=== PATIENT | female | born 1975 | race Caucasian/White ===

== ENCOUNTER 2019-03-23 12:17 | Outpatient (CLI) | payer BC, SELFPAY ==
--- NOTE | 2019-03-23 12:28 | US_ITS ---
WS: [id number] ULTRASOUND-GUIDED LEFT BREAST BIOPSY CLINICAL INFORMATION: LT BREAST NODULE COMPARISON: None. FINDINGS: The procedure including risks, benefits, and complications were discussed with the patient who agreed to proceed. Using sterile technique patient was prepped and draped in the usual sterile fashion. Aft er 1% lidocaine using ultrasound guidance the cystic lesion at the 10:00 position left breast was asp irated. 1 to 2 cc of dark bloody fluid was aspirated. Cystic lesion essentially resolved and clip was placed at the aspiration site. Fluid was sent for cytology and culture. Next the 2:00 lesion was localized. After 1% lidocaine utilizing real-time ultrasound guidance 5 14-gauge cores were obtained of the left breast lesion at the 2 o'clock position. Subsequently a titanium clip was placed in the biopsy cavit y. No immediate complications. PATHOLOGY DEMONSTRATES: Breat 2:00 position needle core biopsy demonstrates benign breast tissue with fibrocystic changes. N o malignancy or atypia Breast 10:00 4cc yellow barros fluid from breast cyst. Benign cyst contents. No evidence of neoplasia. 1. Uncomplicated ultrasound-guided left breast biopsy 2:00 and aspiration 10:00. 2. The pathology demonstrates benign fibrocystic change at the 2:00 position. No malignancy 3. The pathology demonstrates benign cyst contents at 10:00. No neoplasia. US/[place] [id number] IMPRESSION: BI-RADS: 2-Benign FOLLOW UP: 6 Month Follow-up Recommend 6 month follow-up left breast diagnostic mammogram and ultrasound pos tbiopsy.
== END 2019-03-23 12:18 | disposition home or self-care (01) ==
LOC: RADSHAW 12:21
PROVIDERS: Family Provider Family Medicine; PCP Family Medicine; Visit Provider Family Medicine
DX: N63.21 Unspecified lump in the left breast, upper outer quadrant (principal)
CPT/HCPCS: 19000; 19083; 76942; 87070; 87075; 87205; 88112; 88305; J2001

== ENCOUNTER 2019-10-11 08:49 | Outpatient (CLI) | payer BC, SELFPAY ==
--- NOTE | 2019-10-11 08:54 | MM_ITS ---
WS: [id number] DIAGNOSTIC LEFT DIGITAL MAMMOGRAM WITH CAD HISTORY: LT BREAST NODULE, 6 month follow-up after breast biopsy. No malignancy noted on the biopsy. 2 areas were biopsied. COMPARISON: 02/10/2019, 01/20/2019, 03/23/2019. Technique: CC, MLO and ML views. Spot compression LEFT CC and MLO. Breast composition: There are scattered areas of fibroglandular density. There are biopsy clips in t he superior LEFT breast. No associated mass is are evident. The increased density described on 2018 posterior to the nipple is no longer present. Again noted is the very vague asymmetry in the pos terior LEFT breast near the chest wall. No interval change since 01/20/2019. This asymmetry is slightl y lobulated measuring 7 mm. Similar in appearance as to 02/10/2019. I do not believe this area was bi opsied. This is probably at the 2-3 o'clock axis of the LEFT breast and very posterior. LEFT breast ultrasound, limited. No residual mass noted in the LEFT breast at 10:00. There is a benign lymph node at 10:00, 1 cm from the nipple. No corresponding abnormality by ultrasound of the mammographic abnormality at 2-3 o'clock very posterior. No residual mass or increasing size of the masses in the LEFT breast at 2:00 and 10:00 which were rec ently biopsied. MM/[place] [id number] IMPRESSION: BI-RADS: 3-Probably Benign FOLLOW UP: 6 Month Follow-up Patient to return in January 2020 bilateral mammogram. At the time additional evaluation of the very vague asymmetry in the posterior LEFT breast at 2-3 o'cl ock should be further evaluated. Ultrasound may be necessary.
== END 2019-10-11 08:50 | disposition home or self-care (01) ==
LOC: RADSHAW 08:52
PROVIDERS: PCP Family Medicine; Visit Provider Family Medicine
DX: N63.22 Unspecified lump in the left breast, upper inner quadrant (principal)
CPT/HCPCS: 76642; 77065

== ENCOUNTER 2020-03-05 09:59 | Outpatient (CLI) | payer BC, SELFPAY ==
--- NOTE | 2020-03-05 10:05 | MM_ITS ---
WS: [id number] BILATERAL DIGITAL DIAGNOSTIC MAMMOGRAM MAMMOGRAPHY WITH CAD CLINICAL INFORMATION: LT BREAST ASYMMETRY COMPARISON: October 11, 2019 TECHNIQUE: Bilateral CC, MLO, and ML views. FINDINGS: Scattered fibroglandular densities bilaterally. Biopsy clips in the superior left breast. Again seen is the vague asymmetry in the posterior left breast near the chest wall. This is unchanged since 2019 . Again this measures approximately 7 mm and best seen on the ML and MLO views. Left breast is otherw ise unchanged. Ultrasound is pending. Right breast is unchanged and unremarkable. ULTRASOUND BREAST LEFT TECHNIQUE: Ultrasound left breast focused area of concern. CLINICAL INFORMATION: LT BREAST ASYMMETRY COMPARISON: October 11, 2019 FINDINGS: Ultrasound left breast. Biopsy clips are seen at the 2:00 and 10:00 positions associated with the pre viously described lesions with previous benign biopsy. This is similar in appearance compared to prev ious. At the 3:00 position, near the areola, is a benign cystic appearing lesion or dilated duct with focal calcification which has a benign appearance. No suspicious lesions corresponding to the vague asymmetry described above. No pathologic abnormaliti es to target for biopsy. MM/[place] [id number] IMPRESSION: BI-RADS: 2-Benign FOLLOW UP: 1 Year Follow-up Recommend return to annual screening mammography.
== END 2020-03-05 10:00 | disposition home or self-care (01) ==
LOC: RADSHAW 10:03
PROVIDERS: PCP Family Medicine; Visit Provider Family Medicine
DX: N64.89 Other specified disorders of breast (principal)
CPT/HCPCS: 76642; 77066

== ENCOUNTER 2021-06-03 11:35 | Outpatient (CLI) | payer BC, SELFPAY ==
--- NOTE | 2021-06-03 11:50 | CT_ITS ---
WS: [id number] CT ABDOMEN TECHNIQUE: Noncontrast CT of the abdomen with coronal and sagittal reformatted images. CLINICAL INFORMATION: RLQ PAIN COMPARISON: CT DLP: 1305.[address] scans at [facility] use at least one of these dose optimization techniques: automated e xposure control; mA and/or kV adjustment per patient size (includes targeted exams where dose is matc hed to clinical indication); or iterative reconstruction. FINDINGS: Normal appendix in the RIGHT lower quadrant. No evidence of acute appendicitis. No obstruct ing renal or ureteral calculi. No hydronephrosis. LEFT lower pole renal cyst. Pelvic phleboliths. Noncontrast liver is normal. Noncontrast gallbladder is normal. Normal noncontrast spleen. Normal GE junction. Noncontrast pancreas is normal.Lung bases are well aerated. A few prominent lymph nodes carl ng the central mesentery and RIGHT lower quadrant unchanged since 2012 Normal sigmoid colon. Tiny fat-containing umbilical hernia. Mild compression superior endplate L3 has a chronic appearance unchanged since 2012 Prior hysterectomy. No free fluid in the abdomen or pelvis. Small fat-containing umbilical hernia. CT/CT abdomen wo con [id number] IMPRESSION: 1. Normal appendix in the RIGHT lower quadrant. No evidence of acute appendici tis. 2. Prior hysterectomy. 3. No obstructing renal or ureteral calculi. No hydronephrosis. 4. Tiny fat-containing umbilical hernia. 5. Mild chronic compression superior endplate L3 with slight anterolisthesis. Slight retropulsion of the posterior superior endplate L3 is unchanged. 6. No acute abdominal or pelvic findings
== END 2021-06-03 11:36 | disposition home or self-care (01) ==
LOC: RAD 11:38
PROVIDERS: PCP Family Medicine; Visit Provider Family Medicine
DX: Z90.710 Acquired absence of both cervix and uterus (principal); K42.9 Umbilical hernia without obstruction or gangrene
CPT/HCPCS: 74150

== ENCOUNTER 2021-06-04 15:05 | Emergency (ER) | payer BC, SELFPAY ==
[2021-06-04 15:15] VITALS: BP 154/74; PULSE 96; RESP 14; TEMP 37; O2SAT 99; BMI 36.5
[2021-06-04 15:22] VITALS: BP 157/80; PULSE 92; RESP 16; TEMP 36.6; O2SAT 97
--- NOTE | 2021-06-04 15:39 | ED_ITS ---
HPI - Abdominal Pain General: Chief Complaint: Abdominal Pain Stated Complaint: Carolyn Hays, lower right abd pain Time Seen by Provider: 06/04/21 15:27 Source: patient Mode of arrival: ambulatory Limitations: no limitations History of Present Illness: 45-year-old female presents emergency room complai barb of right flank pain. She has had this for the last several days. She been to urgent care twice she also had some diarrhea with it no hematochezia melena hematemesis cognitive status dysuria urgency or frequency. No recent oral antibiotics. MD elicited complaint: abdominal pain Onset (ago): day(s) Pain Consistency: constant Location: RUQ and R flank Severity: moderate Quality: cramping Radiation: none Migration to: no migration Exacerbating factors: nothing Relieving factors: nothing Associated Symptoms: Reports change in stool character, GI cramping and diarrhea; Denies anorexia, belching, bloating, change in bowel habits, chills, coffee ground emesis, constipation, dyspepsia, dysuria, excessive flatus, fever(s), heartburn, hematochezia, hematuria, hematemesis, fecal incontinence, loose stools, melena, nausea, poor appetite, syncope and vomiting Review of Systems Const: Denies: fever(s) or chills Card: Denies: syncope GI: Reports: diarrhea, GI cramping and change in stool character; Denies: nausea, vomiting, hematemesis, coffee ground emesis, heartburn, constipation, bloating, belching, excessive flatus, fecal incontinence, change i n bowel habits, hematochezia or melena : Denies: dysuria or hematuria PFSH ED PFSH: Medical History Chronic idiopathic urticaria Surgical History History of esophagogastroduodenoscopy 2020 History of hysterectomy Family History Other CAD (coronary artery disease) Cancer Diabetes Hypertension Social History Smoking and tobacco status: current some day smoker Physical Exam Const: COMMON NORMALS: no acute distress GENERAL APPEARANCE: cooperative and comfortable ORIENTATION/CONSCIOUSNESS: Yes awake, Yes oriented to person, Yes oriented to place and Yes oriented to time HENMT: COMMON NORMALS: normocephalic, atraumatic and hearing grossly normal bilaterally HEAD & SCALP: normocephalic and atraumatic Neck/C-Spine: COMMON NORMALS: no JVD Resp: COMMON NORMALS: normal respiratory effort, No retractions, No use of ac cessory muscles and clear to auscultation bilaterally AUSCULTATION: clear to auscultation bilaterally Cardio: COMMON NORMALS: no JVD, regular rate, regular rhythm and No murmurs present (Cardio) RATE: regular rate RHYTHM: regular rhythm GI: COMMON NORMALS: No hepatosplenomegaly present AUSCULTATION: Yes normoactive bowel sounds PALPATION: Yes Tenderness to palpation present (GI), No Guarding due to palpation present (GI) and Yes No hepatosplenomegaly present Extremity: COMMON NORMALS: normal to inspection, capillary refill normal, no clubbing, cyanosis or edema, no calf tenderness and no pedal edema Neuro: SENSORIUM/ORIENTATION: Yes oriented to person, Yes oriented to place and Yes oriented to time Skin: COMMON NORMALS: no rashes or lesions noted GENERAL SKIN EXAM: no rashes or lesions noted Course Vital Signs: Vital signs: Vital Signs Temperature 98 F 06/04/21 15:22 Pulse Rate 96 06/04/21 15:52 Respiratory Rate 16 06/04/21 15:52 Blood Pressure 168/89 06/04/21 15:52 Pulse Oximetry 99 06/04/21 15:52 MDM - Abdominal Pain Medical Decision Making Labs and imaging reviewed. CT does not show any acute pathology. She has a sma ll umbilical hernia but is not regularly tenderness not the area of her pain at this time. Recommend clear liquid diet if has any worsening or change in recheck follow-up with primary care if persists may need endoscopy. No episodes of diarrhea while in the emergency room. Medical Records I reviewed the patient's medical records. Lab Data I reviewed the patient's lab results. : 06/04/21 15:45 06/04/21 15:45 Labs/Radiology: Radiology Impressions Chest X-Ray 06/04/21 15:41 IMPRESSION: No acute findings. Abdomen/Pelvis CT 06/04/21 15:43 IMPRESSION: No acute intra-abdominal or intrapelvic pathology. COMMENTS: Consistent with the [employer]'s Incidental Findings Committee white paper (J Am Honorio Radiol 2018): Any incidental renal lesion less than 1 cm or classified as too small to characterize, or any incidental cystic renal lesion characterized as simple-appearing, is likely benign. No follow-up imaging is recommended for these lesions per consensus recommendations based on imaging criteria. Laboratory Results WBC 15.0 10^3/uL (4.0-10.0) H 06/04/21 15:45 RBC 4.81 10^6/uL (4.1-5.3) 06/04/21 15:45 Hgb 15.2 g/dL (11.5-15.3) 06/04/21 15:45 Hct 45.3 % (37.0-47.0) 06/04/21 15:45 MCV 94.2 fl (81-99) 06/04/21 15:45 MCH 31.6 pg (28.0-34.0) 06/04/21 15:45 MCHC 33.6 g/dL (30.0-36.0) 06/04/21 15:45 RDW 12.6 % (12.1-15.1) 06/04/21 15:45 Plt Count 334 10^3/cmm (130-400) 06/04/21 15:45 MPV 10.9 fL (7.4-10.4) H 06/04/21 15:45 Neut % (Auto) 67.0 % 06/04/21 15:45 Lymph % (Auto) 27.2 % 06/04/21 15:45 Wilkes % (Auto) 5.3 % 06/04/21 15:45 Eos % (Auto) 0.0 % 06/04/21 15:45 Baso % (Auto) 0.2 % 06/04/21 15:45 Neut # (Auto) 10.05 10^3/uL (1.8-7.7) H 06/04/21 15:45 Lymph # (Auto) 4.1 10^3/uL (0.8-4.8) 06/04/21 15:45 Wilkes # (Auto) 0.8 10^3/uL (0.2-0.9) 06/04/21 15:45 Eos # (Auto) 0.0 10^3/uL (0.0-0.8) 06/04/21 15:45 Baso # (Auto) 0.0 10^3/uL (0.0-0.1) 06/04/21 15:45 Nucleated RBC % (auto) 0 % 06/04/21 15:45 Nucleated RBCs # 0.0 /100WBC 06/04/21 15:45 Sodium 139 mmol/L (136-145) 06/04/21 15:45 Potassium 3.7 mmol/L (3.5-5.1) 06/04/21 15:45 Chloride 103 mmol/L (98-107) 06/04/21 15:45 Carbon Dioxide 26 mmol/L (22-29) 06/04/21 15:45 Anion Gap 13.7 (5-19) 06/04/21 15:45 BUN 10 mg/dL (6-20) 06/04/21 15:45 Creatinine 0.8 mg/dL (0.5-0.9) 06/04/21 15:45 GFR Calculation 77.6 mL/min (90-130) L 06/04/21 15:45 Glucose 83 mg/dL (65-115) 06/04/21 15:45 Calculated Osmolality 286 mOsm/kg (285-295) 06/04/21 15:45 Calcium 9.7 mg/dL (8.5-10.5) 06/04/21 15:45 Total Bilirubin 0.2 mg/dL (0.15-1.2) 06/04/21 15:45 AST 37 U/L (0-32) H 06/04/21 15:45 ALT 43 U/L (0-33) H 06/04/21 15:45 Alkaline Phosphatase 84 IU/L (35-105) 06/04/21 15:45 Total Protein 7.3 g/dL (6.6-8.7) 06/04/21 15:45 Albumin 4.5 g/dL (3.5-5.2) 06/04/21 15:45 Globulin 2.8 g/dL (1.3-4.6) 06/04/21 15:45 Lipase 12 U/L (13-60) L 06/04/21 15:45 Urine Color Yellow (Yellow) 06/04/21 16:25 Urine Appearance Sl hazy (CLEAR) 06/04/21 16:25 Urine pH 9 (5-7) H 06/04/21 16:25 Ur Specific [place] 1.015 (1.005-1.030) 06/04/21 16:25 Urine Protein Neg (Negative) 06/04/21 16:25 Urine Glucose (UA) Norm (Normal) 06/04/21 16:25 Urine Ketones Negative (Negative) 06/04/21 16:25 Urine Blood Neg (Negative) 06/04/21 16:25 Urine Nitrate Negative (Negative) 06/04/21 16:25 Urine Bilirubin Neg (Negative) 06/04/21 16:25 Prot Sulfosalicylic Acd Negative (Negative) 06/04/21 16:25 Urine Urobilinogen Norm mg/dL (Negative) 06/04/21 16:25 Ur Leukocyte Esterase Negative (Negative) 06/04/21 16:25 Urine RBC Rare /hpf (0-2) 06/04/21 16:25 Urine WBC None /hpf (0-5) 06/04/21 16:25 Ur Squamous Epith Cells 0-4 /hpf (0-5) H 06/04/21 16:25 Amorphous Sediment 1+ /hpf 06/04/21 16:25 Urine Bacteria Trace /hpf (NONE) 06/04/21 16:25 Discharge Plan Discharge Patient Disposition: Home Clinical Impression: Right flank pain Condition: Stable Prescriptions: New diclofenac sodium 75 mg tablet,delayed release (DR/EC) 75 mg PO Q12H PRN (Reason: pain) Qty: 20 0RF No Action fluticasone propionate [Flonase Allergy Relief] 50 mcg/actuation spray,miguel pension 1 spray intranasal DAILY 0RF Rx Instructions: administer into each nostril fexofenadine [Melodie Allergy] 180 mg tablet 180 mg PO DAILY 0RF irbesartan 150 mg tablet 150 mg PO DAILY 0RF montelukast 10 mg tablet 10 mg PO DAILY 0RF albuterol sulfate 2.5 mg /3 mL (0.083 %) solution for nebulization 2.5 mg inhalation Q4H PRN0RF epinephrine 0.3 mg/0.3 mL auto-injector 0.3 mg IM Q4H PRN0RF (DME) oxygen-air delivery systems Device See Rx Instructions .Route 0RF Rx Instructions: As directed Xolair 150 mg recon soln SUBCUT 0RF doxepin 50 mg capsule 50 mg PO DAILY 0RF Spiriva Respimat 1.25 mcg/actuation mist 2 puff inhalation DAILY 0RF Breo Ellipta 200-25 mcg/dose blister with device 1 inh inhalation DAILY 0RF Zyrtec 10 mg capsule 10 mg PO DAILY PRN0RF albuterol sulfate [ProAir HFA] 90 mcg/actuation HFA aerosol inhaler 1 inh inhalation QID 0RF Discharge Orders: Discharge ED (Routine); Ordered 06/04/21 Ordered By: Michael Arroyo Referrals: Karl Stevens MD [Primary Care Provider] - Patient Instructions: Opioid Safety Activity Restrictions/Additional Instructions: If symptoms persist follow-up with your primary care physician Coding Level of Care Code ED [employer] Resource Economist for Charo Santos
--- NOTE | 2021-06-04 15:40 | ECG_ITS ---
[facility] Test Date: 2021-06-04 Pat Name: Klarissa Marley Department: Room: Gender: Female [employer]: : 1975 Requested By: Michael Rios Order Number: [id number] Arun MD: Lorena Jeffery M.D. Measurements Intervals [place] Rate: 82 P: 64 MO: 155 QRS: 73 QRSD: 92 T: 58 QT: 366 QTc: 428 Interpretive Statements SINUS RHYTHM Compared to ECG 11/15/2018 22:54:02 No significant changes Electronically Signed On 06-04-2021 19:24:26 CDT by Lorena Jeffery M.D. [id number]
--- NOTE | 2021-06-04 15:41 | XRR_ITS ---
PROCEDURE INFORMATION: Exam: XR Chest Exam date and time: 06/04/2021 2:51 PM Age: 45 years old Clinical indication: Cough and dyspnea; Additional info: Dyspnea/cough TECHNIQUE: Imaging protocol: XR of the chest. Views: 1 view. COMPARISON: DX Chest 1 [place] [id number] 11/15/2018 8:35 PM FINDINGS: Lungs: Unremarkable. No consolidation. Pleural spaces: Unremarkable. No pleural effusion. No pneumothorax. Heart/Mediastinum: Unremarkable. No cardiomegaly. Bones/joints: Unremarkable. XR/XR chest 1V portable [id number] IMPRESSION: No acute findings.
--- NOTE | 2021-06-04 15:43 | CTR_ITS ---
PROCEDURE INFORMATION: Exam: CT Abdomen And Pelvis With Contrast Exam date and time: 06/04/2021 4:29 PM Age: 45 years old Clinical indication: Abdominal pain; Patient HX: [place] fever and rlq pain; Additional info: Abd pain TECHNIQUE: Imaging protocol: Computed tomography of the abdomen and pelvis with contrast. Contrast material: OMNI; Contrast volume: 300 ml; Contrast route: INTRAVENOUS (IV); COMPARISON: CT abdomen wo con [id number] 06/03/2021 12:03 PM RADIATION DOSE METRICS: Total DLP (mGy-cm): 1800.45 FINDINGS: Liver: Normal. No mass. Gallbladder and bile ducts: Normal. No calcified stones. No ductal dilation. Pancreas: Normal. No ductal dilation. Spleen: A small accessory splenule is noted in the left upper quadrant. The spleen is unremarkable. Adrenal glands: Normal. No mass. Kidneys and ureters: There is a 2.1 cm cyst in the left lower kidney. The kidneys are otherwise unremarkable. Stomach and bowel: There is diverticulosis without evidence of diverticulitis. Appendix: No evidence of appendicitis. Intraperitoneal space: Unremarkable. No free air. No significant fluid collection. Vasculature: Unremarkable. No abdominal aortic aneurysm. Lymph nodes: Unremarkable. No enlarged lymph nodes. Urinary bladder: Unremarkable as visualized. Reproductive: The uterus is surgically absent. Bones/joints: Unchanged grade 1 retrolisthesis and chronic mild anterior wedge compression fracture deformity of L3. Soft tissues: A small fat containing umbilical hernia is present. CT/CT abdomen pelvis w con* [id number] IMPRESSION: No acute intra-abdominal or intrapelvic pathology. COMMENTS: Consistent with the [employer]'s Incidental Findings Committee white paper (J Am Honorio Radiol 2018): Any incidental renal lesion less than 1 cm or classified as too small to characterize, or any incidental cystic renal lesion characterized as simple-appearing, is likely benign. No follow-up imaging is recommended for these lesions per consensus recommendations based on imaging criteria.
[2021-06-04 15:52] VITALS: BP 168/89; PULSE 96; RESP 16; O2SAT 99
[2021-06-04 16:22] LABS: Basophils % 0.2 %; Hematocrit 45.3 % (37.0-47.0); Hemoglobin 15.2 g/dL (11.5-15.3); Lymphocytes # 4.1 10^3/uL (0.8-4.8); Lymphocytes % 27.2 %; Mean Corpuscular HGB Conc 33.6 g/dL (30.0-36.0); Mean Corpuscular Hemoglobin 31.6 pg (28.0-34.0); Mean Corpuscular Volume 94.2 fl (81-99); Mean Platelet Volume 10.9 fL (7.4-10.4); Monocytes # 0.8 10^3/uL (0.2-0.9); Monocytes % 5.3 %; Neutrophils # 10.05 10^3/uL (1.8-7.7); Nucleated Red Blood Cells % 0 %; Platelet Count 334 10^3/cmm (130-400); Red Blood Count 4.81 10^6/uL (4.1-5.3); Red Cell Distribution Width 12.6 % (12.1-15.1)
[2021-06-04] MEDS: iohexol 300 mg/mL 100 mL Btl IV (16:28)
[2021-06-04 16:48] LABS: Alanine Aminotransferase 43 U/L (0-33); Albumin Level 4.5 g/dL (3.5-5.2); Alkaline Phosphatase 84 IU/L (35-105); Anion Gap 13.7 (5-19); Aspartate Amino Transferase 37 U/L (0-32); Blood Urea Nitrogen 10 mg/dL (6-20); Calcium 9.7 mg/dL (8.5-10.5); Carbon Dioxide 26 mmol/L (22-29); Chloride 103 mmol/L (98-107); Globulin 2.8 g/dL (1.3-4.6); Glomerular Filtration Rate 77.6 mL/min (90-130); Glucose 83 mg/dL (65-115); Lipase 12 U/L (13-60); Osmolality Calculated 286 mOsm/kg (285-295); Potassium 3.7 mmol/L (3.5-5.1); Sodium 139 mmol/L (136-145); Total Bilirubin 0.2 mg/dL (0.15-1.2); Total Protein 7.3 g/dL (6.6-8.7)
[2021-06-04 17:03] LABS: Bilirubin Urine Neg (Negative); Blood Urine Neg (Negative); Glucose Urine UA Norm (Normal); Ketones Urine Negative (Negative); Leukocyte Esterase Urine Negative (Negative); Nitrate Urine Negative (Negative); Protein Urine Neg (Negative); Specific Gravity, Urine 1.015 (1.005-1.030); Sulfosalicylic Acid Urine Negative (Negative); Urine Color Yellow (Yellow); Urobilinogen Urine Norm (Negative); pH Urine 9 (5-7)
[2021-06-04 17:04] LABS: Add Urine Culture? No; Add Urine Microscopic? YES; Amorphous Sediment Urine 1+ /hpf; Bacteria Urine TRACE /hpf; RBC Urine RARE /hpf (0-2); Squamous Epithelial Cell Urine 0-4 /hpf (0-5); Urine Appearance SL Hazy (CLEAR)
== END 2021-06-04 17:25 | disposition home or self-care (01) ==
PROVIDERS: Emergency Provider Family Medicine; PCP Family Medicine
DX: R10.31 Right lower quadrant pain (principal); F17.200 Nicotine dependence, unspecified, uncomplicated
CPT/HCPCS: 71045; 74177; 80053; 81001; 83690; 85025; 93005; 99283; Q9967

== ENCOUNTER 2021-06-27 09:06 | Day surgery (SDC) | payer BC, SELFPAY ==
[2021-06-27 06:21] VITALS: BMI 36.5
[2021-06-27 09:24] VITALS: BP 142/68; PULSE 76; RESP 16; TEMP 36.1; O2SAT 98
[2021-06-27] MEDS: sodium chloride 0.9% 1,000 ML 30 ML IV (09:26)
--- NOTE | 2021-06-27 09:41 | ANES.PREANE2 ---
Pre-Anesthetic Assessment Height/Weight: Height 1.73 m Weight 108.862 kg Temp Pulse Resp BP Pulse Ox 97.0 F L 76 16 142/68 98 06/27/21 09:24 06/27/21 09:24 06/27/21 09:24 06/27/21 09:24 06/27/21 09:24 Preop Diagnosis: diagnostic Operation Date: 06/27/21 10:30 Proposed Procedures p Colonoscopy 07019/bd pain R10.9(Not Applicable) - Obinna Booth MD Familial anesthetic complications: None Was Beta Hermila taken within 24 hours: N/A Was Clonidine taken within 24 hours: N/A Last intake: Intake Last Liquid Date 06/26/21 Last Liquid Time 20:00 Last Solid Date 06/25/21 Last Solid Time 19:30 Social No alcohol and No tobacco Exam alert, oriented x 3, clear to auscultation bilaterally and regular rate & rhythm Airway Submandibular: within normal limits Cervical ROM: within normal limits Mallampati: Class II Dentition: false Pulmonary Asthma and Sleep Apnea CV/HEM Hypertension GI Gastroesophageal Reflux Disease Metabolic Morbid Obesity Anesthetic Plan ASA status: 3 Anesthesia: MAC Medications/Allergies Home Medications Medication Instructions Recorded Confirmed Last Taken Type diclofenac sodium 75 mg 75 mg PO Q12H PRN #20 tab 06/04/21 06/27/21 06/26/21 Rx tablet,delayed release albuterol sulfate 90 mcg/actuation 1 inh INHALATION QID 06/13/21 06/27/21 06/23/21 History aerosol inhaler (ProAir HFA) cetirizine 10 mg capsule (Zyrtec) 10 mg PO DAILY PRN 06/13/21 06/27/21 06/27/21 History epinephrine 0.3 mg/0.3 mL 0.3 mg IM Q4H PRN 06/13/21 06/27/21 Unknown History injection, auto-injector fexofenadine 180 mg tablet 180 mg PO DAILY 06/13/21 06/27/21 06/27/21 History (Melodie Allergy) fluticasone propionate 50 1 spray INTRANASAL DAILY 06/13/21 06/27/21 06/27/21 History mcg/actuation nasal spray,suspension (Flonase Allergy Relief) irbesartan 150 mg tablet 150 mg PO DAILY 06/13/21 06/27/21 06/26/21 History montelukast 10 mg tablet 10 mg PO DAILY 06/13/21 06/27/21 Unknown History oxygen-air delivery systems 06/13/21 06/27/21 Unknown History tiotropium bromide 1.25 2 puff INHALATION DAILY 06/13/21 06/27/21 Unknown History mcg/actuation mist for inhalation (Spiriva Respimat) fluticasone propionate 220 2 inh INHALATION BID 06/27/21 06/27/21 06/27/21 History mcg/actuation HFA aerosol inhaler (Flovent HFA) ondansetron HCl 8 mg tablet 8 mg PO Q8H PRN 06/27/21 06/27/21 Unknown History Allergies Allergy/AdvReac Type Severity Reaction Status Date / Time aspirin Allergy ADR-Heartbu Verified 06/27/21 09:16 rn azithromycin [From Zithromax] Allergy ALGY-Hives Verified 06/27/21 09:16 alpha-gal Allergy Unknown Uncoded 06/27/21 09:16 bandaids Allergy ALGY-Rash Uncoded 06/27/21 09:16 Current Medications Generic Name Dose Route Start Last Admin Trade Name Freq PRN Reason Stop Dose Admin Sodium Chloride 1,000 mls @ 30 mls/hr 06/27/21 09:30 06/27/21 09:26 Sodium Chloride 0.9% IV 06/28/21 09:29 30 mls/hr .Q24H MAMIE Administration PFSH Anesthesia Medical History Chronic idiopathic urticaria Surgical History History of esophagogastroduodenoscopy 2020 History of hysterectomy Family History Other CAD (coronary artery disease) Cancer Diabetes Hypertension Social History Smoking and tobacco status: current some day smoker Data Anesthesia Cardiac Studies: Holter Monitor 01/18/20
--- NOTE | 2021-06-27 11:10 | W.PM.OPSFHP ---
Same Day Surgery H&P Indication for Procedure/HPI DATE OF PROCEDURE: June 27, 2021 CHIEF COMPLAINT/INDICATIONFOR SURGICAL PROCEDURE: Colonoscopy PREOP DIAGNOSIS: diagnostic PLANNED PROCEDURE: Operation Date: 06/27/21 10:30 Proposed Procedures p Colonoscopy 15392/bd pain R10.9(Not Applicable) - Obinna Booth MD Medications/Allergies* Home Medications Medication Instructions Recorded Confirmed Type albuterol sulfate 90 mcg/actuation 1 inh INHALATION QID 06/13/21 06/27/21 History aerosol inhaler (ProAir HFA) cetirizine 10 mg capsule (Zyrtec) 10 mg PO DAILY PRN 06/13/21 06/27/21 History epinephrine 0.3 mg/0.3 mL 0.3 mg IM Q4H PRN 06/13/21 06/27/21 History injection, auto-injector fexofenadine 180 mg tablet 180 mg PO DAILY 06/13/21 06/27/21 History (Melodie Allergy) fluticasone propionate 50 1 spray INTRANASAL DAILY 06/13/21 06/27/21 History mcg/actuation nasal spray,suspension (Flonase Allergy Relief) irbesartan 150 mg tablet 150 mg PO DAILY 06/13/21 06/27/21 History montelukast 10 mg tablet 10 mg PO DAILY 06/13/21 06/27/21 History oxygen-air delivery systems 06/13/21 06/27/21 History tiotropium bromide 1.25 2 puff INHALATION DAILY 06/13/21 06/27/21 History mcg/actuation mist for inhalation (Spiriva Respimat) fluticasone propionate 220 2 inh INHALATION BID 06/27/21 06/27/21 History mcg/actuation HFA aerosol inhaler (Flovent HFA) ondansetron HCl 8 mg tablet 8 mg PO Q8H PRN 06/27/21 06/27/21 History Allergies/Adverse Reactions Allergy/AdvReac Type Severity Reaction Status Date / Time aspirin Allergy ADR-Heartbu Verified 06/27/21 09:16 rn azithromycin [From Zithromax] Allergy ALGY-Hives Verified 06/27/21 09:16 alpha-gal Allergy Unknown Uncoded 06/27/21 09:16 bandaids Allergy ALGY-Rash Uncoded 06/27/21 09:16 Current Medications: Generic Name Dose Route Start Last Admin Trade Name Freq PRN Reason Stop Dose Admin Sodium Chloride 1,000 mls @ 30 mls/hr 06/27/21 09:30 06/27/21 09:26 Sodium Chloride 0.9% IV 06/28/21 09:29 30 mls/hr .Q24H MAMIE Administration Pertinent History/Comorbid Conditions* Medical History (Updated 06/13/21 @ 10:13 by Obinna Booth MD) Chronic idiopathic urticaria Surgical History (Updated 06/13/21 @ 10:13 by Obinna Booth MD) History of esophagogastroduodenoscopy 2020 History of hysterectomy Family History (Updated 06/13/21 @ 09:46 by Maria Elena Bethea MA) Diabetes CAD (coronary artery disease) Cancer Hypertension Social History Smoking and tobacco status: current some day smoker Pertinent Exam Findings alert, oriented x 3 and regular rate & rhythm Recommendations Surgery/Procedure today Coding Level of Care Code Acute Machinist Instructor for Charo Santos
[2021-06-27 11:30] VITALS: BP 120/70; PULSE 71; RESP 16; TEMP 36.3; O2SAT 98
--- NOTE | 2021-06-27 11:34 | ANE.PACU2 ---
Inpatient post-anesthesia follow up: Airway intact: Yes Vital signs: Temperature 97.0 F Pulse Rate 76 Respiratory Rate 16 Blood Pressure 142/68 Pulse Oximetry 98 Oxygen Delivery Me thod Room Air Oxygen Flow Rate Fraction of Inspir ed Oxygen Hydration adequate: Yes Nausea and vomiting: No Pain level: 1 Mental status: Baseline
[2021-06-27 11:45] VITALS: BP 140/88; PULSE 86; RESP 16; O2SAT 98
[2021-06-27 11:55] VITALS: BP 126/92; PULSE 74; RESP 16; O2SAT 98
== END 2021-06-27 12:10 | disposition home or self-care (01) ==
PROVIDERS: PCP Family Medicine; Visit Provider Surgery
PROC: 0DJD8ZZ Inspection of Lower Intestinal Tract, Via Natural or Artificial Opening Endoscopic (ICD-10-PCS; CPT 45378; principal; 2021-06-27 10:30)
DX: R10.9 Unspecified abdominal pain (principal); K63.3 Ulcer of intestine; L53.9 Erythematous condition, unspecified; K57.30 Diverticulosis of large intestine without perforation or abscess without bleeding; G47.30 Sleep apnea, unspecified; K21.9 Gastro-esophageal reflux disease without esophagitis; E66.01 Morbid (severe) obesity due to excess calories; Z68.36 Body mass index [BMI] 36.0-36.9, adult; F17.210 Nicotine dependence, cigarettes, uncomplicated
CPT/HCPCS: 45380; 82274; 83630; 87493; 87506; 88305; J2704; J7030

== ENCOUNTER 2022-02-23 13:31 | Outpatient (CLI) | payer BC, SELFPAY ==
--- NOTE | 2022-02-23 13:39 | MM_ITS ---
WS: [id number] BILATERAL SCREENING DIGITAL TOMOSYNTHESIS MAMMOGRAM WITH CAD HISTORY: SCREENING COMPARISON: 03/05/2020, 10/11/2019, 01/20/2019 Bilateral CC and MLO views with tomosynthesis and synthetic mammography submitted. Computer aided det ection analyzed. Breast composition: There are scattered areas of fibroglandular density. No suspicious masses, microc alcifications or architectural distortion. Biopsy clips LEFT breast. MM/[place] [id number] IMPRESSION: BI-RADS: 2-Benign FOLLOW UP: 1 Year Follow-up
== END 2022-02-23 13:32 | disposition home or self-care (01) ==
LOC: RAD 13:33
PROVIDERS: PCP Family Medicine; Visit Provider Family Medicine
DX: Z12.31 Encounter for screening mammogram for malignant neoplasm of breast (principal)
CPT/HCPCS: 77063; 77067

== ENCOUNTER → 2022-08-01 13:50 | Outpatient (BNVA) | payer BC, SELFPAY | PROVIDERS: PCP Family Medicine; Visit Provider Nurse Practitioner Family | DX: M79.672 Pain in left foot (principal) | CPT/HCPCS: 73630 ==

== ENCOUNTER → 2022-08-05 09:20 | Outpatient (BNVA) | payer BC, SELFPAY | PROVIDERS: PCP Family Medicine; Visit Provider Podiatrist Foot & Ankle Surgery | DX: M84.375A Stress fracture, left foot, initial encounter for fracture (principal); M77.8 Other enthesopathies, not elsewhere classified; S93.602A Unspecified sprain of left foot, initial encounter; X58.XXXA Exposure to other specified factors, initial encounter; M79.672 Pain in left foot | CPT/HCPCS: 73630 ==

== ENCOUNTER 2022-08-05 10:47 | Outpatient (CLI) | payer BC, SELFPAY | END 2022-08-05 10:48 | disposition home or self-care (01) | LOC: SPT 10:47 | PROVIDERS: PCP Family Medicine; Visit Provider Podiatrist Foot & Ankle Surgery | DX: Z46.89 Encounter for fitting and adjustment of other specified devices (principal); M79.673 Pain in unspecified foot | CPT/HCPCS: 97760; L4361 ==

== ENCOUNTER 2022-08-12 17:14 | Outpatient (CLI) | payer BC, SELFPAY ==
[2022-08-12 18:22] LABS: Erythrocyte Sedimentation Rate 15 mm/hr (0-15)
[2022-08-12 18:47] LABS: C Reactive Protein 5.5 mg/L (0.0-4.9)
[2022-08-14 10:55] LABS: COMPLEMENT COMPONENT C3C 132 mg/dL (83-193); COMPLEMENT COMPONENT C4C 26 mg/dL (15-57)
[2022-08-14 13:33] LABS: COMPLEMENT, TOTAL (CH50) 55 U/mL (31-60)
[2022-08-14 14:14] LABS: Cyclic Citrullinated Peptide <16 UNITS
[2022-08-14 16:08] LABS: ANA SCREEN, IFA NEGATIVE (NEGATIVE); CENTROMERE B ANTIBODY <1.0 NEG AI (<1.0 NEG); JO-1 ANTIBODY <1.0 NEG AI (<1.0 NEG); RNP ANTIBODY <1.0 NEG AI (<1.0 NEG); SCL-70 ANTIBODY <1.0 NEG AI (<1.0 NEG); SJOGREN'S ANTIBODY (SS-A) <1.0 NEG AI (<1.0 NEG); SM ANTIBODY <1.0 NEG AI (<1.0 NEG); SS-B <1.0 NEG AI (<1.0 NEG)
[2022-08-17 13:09] LABS: THYROID PEROXIDASE ANTIBODIES <1 IU/mL (<9)
[2022-08-18 11:29] LABS: DNA AB (DS) CRITHIDIA,IFA NEGATIVE (NEGATIVE)
== END 2022-08-12 17:15 | disposition home or self-care (01) ==
PROVIDERS: PCP Family Medicine; Visit Provider Podiatrist Foot & Ankle Surgery
DX: M79.672 Pain in left foot (principal)
CPT/HCPCS: 85651; 86140; 86160; 86162; 86200; 86235; 86255; 86376

== ENCOUNTER 2022-08-25 15:04 | Outpatient (CLI) | payer BC, SELFPAY ==
--- NOTE | 2022-08-25 15:15 | MR_ITS ---
WS: [id number] EXAMINATION: MR foot LT wo con* [id number] ORDER DATE: 08/25/2022 3:36 PM COMPARISON: None. HISTORY: Left foot pain worsening over the past month CONTRAST: None. TECHNIQUE: Sagittal T1, sagittal STIR, coronal PD, coronal T2, axial T1, axial T2, and axial PD imagi ng with fat saturation technique. FINDINGS: Pes planus. Plantar calcaneal spurring. Diffuse soft tissue edema worse about the lateral f oot. Normal tarsal metatarsal alignment. Distal Achilles appears intact Trace fluid in the retrocalcaneal bursa. Normal bone marrow edema in the calcaneus. Normal talocalcan eal articulation. Normal navicular. Normal talonavicular articulation. Normal medial and lateral mall eolus. Normal talar dome. Normal cuboid. Small joint effusion. Diffuse soft tissue edema worse about the lateral foot. Base of the 5th metatarsal appears normal. Normal bone marrow signal in the metatar sals. Tenosynovitis along the peroneal tendon sheath. Tenosynovitis involving the tibialis posterior and fl exor digitorum longus. Laxity involving the ATF suspicious for partial or previous tear. Diminutive ATF. Normal PTF. Normal extensor tendons. MR/MR foot LT wo con* [id number] IMPRESSION: 1. Normal ankle mortise. Normal medial and lateral malleolus. No avulsion frac tures. 2. Partial tear of the ATF with laxity. This may be chronic or due to recurren t injury. Tiny residual ATF. 3. Small ankle effusion. Diffuse soft tissue edema about the lateral foot soft tissues. 4. Tenosynovitis involving the peroneal tendon sheath. 5. Tenosynovitis involving the tibialis posterior and flexor hallucis longus. 6. No acute fractures. 7. Plantar calcaneal spurring. .
== END 2022-08-25 15:05 | disposition home or self-care (01) ==
LOC: RAD 15:07
PROVIDERS: PCP Family Medicine; Visit Provider Podiatrist Foot & Ankle Surgery
DX: M84.375A Stress fracture, left foot, initial encounter for fracture (principal); M77.8 Other enthesopathies, not elsewhere classified; S93.692A Other sprain of left foot, initial encounter; X58.XXXA Exposure to other specified factors, initial encounter; M25.472 Effusion, left ankle; M65.872 Other synovitis and tenosynovitis, left ankle and foot; M77.32 Calcaneal spur, left foot
CPT/HCPCS: 73718

== ENCOUNTER 2023-02-25 15:13 | Outpatient (CLI) | payer BC, SELFPAY ==
--- NOTE | 2023-02-25 15:16 | MM_ITS ---
WS: [id number] Bilateral screening 3D tomosynthesis digital mammogram, 02/25/2023 Clinical Data: SCREENING Comparison: 02/23/2022, 03/05/2020, 10/11/2019 02/10/2019, 01/20/2019. Findings: The breast parenchymal pattern shows fibroglandular tissue. No spiculated masses or clustered calcifi cations are seen. There are no secondary signs of carcinoma. Impression: 1. Negative bilateral mammogram unchanged. 2. Recommend annual screening mammograms. MM/[place] [id number] BIRADS: 1-Negative FOLLOW UP: 1 Year Follow-up The CAD checker cashier was used.
== END 2023-02-25 15:14 | disposition home or self-care (01) ==
LOC: RAD 15:13
PROVIDERS: PCP Family Medicine; Visit Provider Family Medicine
DX: Z12.31 Encounter for screening mammogram for malignant neoplasm of breast (principal)
CPT/HCPCS: 77063; 77067

== ENCOUNTER 2023-09-09 12:51 | Outpatient (RCR) | payer BC, SELFPAY | END 2023-09-12 23:59 | disposition home or self-care (01) | LOC: SPT 12:51 | DX: Z98.890 Other specified postprocedural states (principal) | CPT/HCPCS: 97161 ==

== ENCOUNTER 2023-09-13 06:00 | Outpatient (RCR) | payer BC, SELFPAY | END 2023-10-13 23:59 | disposition home or self-care (01) | LOC: SPT 06:00 | DX: Z98.890 Other specified postprocedural states (principal) | CPT/HCPCS: 97110; 97112; 97140 ==

== ENCOUNTER 2023-09-19 14:03 | Emergency (ER) | payer BC, SELFPAY ==
[2023-09-19 14:46] VITALS: BP 152/115; PULSE 105; RESP 18; TEMP 36.9; O2SAT 98; BMI 33.4
[2023-09-19 14:49] LABS: Basophils # 0.1 10^3/uL (0.0-0.1); Basophils % 0.4 %; Eosinophils # 0.1 10^3/uL (0.0-0.8); Eosinophils % 0.5 %; Hematocrit 47.4 % (36-47); Lymphocytes # 3.4 10^3/uL (0.8-4.8); Lymphocytes % 20.5 %; Mean Corpuscular HGB Conc 33.8 g/dL (30-55); Mean Corpuscular Volume 97.7 fl (85-98); Mean Platelet Volume 11.4 fL (7.4-10.4); Monocytes # 0.9 10^3/uL (0.2-0.9); Monocytes % 5.3 %; Neutrophils # 11.92 10^3/uL (1.8-7.7); Neutrophils % 72.9 %; Nucleated Red Blood Cells % 0 %; Platelet Count 255 10^3/cmm (157-399); Red Blood Count 4.85 10^6/uL (3.85-5.65); Red Cell Distribution Width 12.8 % (12.1-15.1); White Blood Count 16.34 10^3/uL (3.29-11.43)
[2023-09-19 15:05] LABS: Alanine Aminotransferase 16 U/L (0-33); Alkaline Phosphatase 87 U/L (35-105); Anion Gap 14.1 (5-19); Aspartate Amino Transferase 20 U/L (0-32); Blood Urea Nitrogen 14 mg/dL (6-20); Calcium 8.9 mg/dL (8.5-10.5); Carbon Dioxide 24 mmol/L (22-29); Chloride 103 mmol/L (98-107); Creatinine Clr Calc Pharmacy 122.7408; Glomerular Filtration Rate 89.7 mL/min (90-130); Glucose 96 mg/dL (65-115); Lipase 16 U/L (13-60); Osmolality Calculated 284 mOsm/kg (285-295); Potassium 4.1 mmol/L (3.5-5.1); Sodium 137 mmol/L (136-145); Total Bilirubin 0.3 mg/dL (0.15-1.2)
[2023-09-19 15:07] LABS: HCG, Serum Qual Negative (Negative)
--- NOTE | 2023-09-19 16:04 | CTR_ITS ---
PROCEDURE INFORMATION: Exam: CT Abdomen And Pelvis With Contrast Exam date and time: 09/19/2023 4:24 PM Age: 47 years old Clinical indication: Abdominal pain; Localized; Left lower quadrant (llq); TECHNIQUE: Imaging protocol: Computed tomography of the abdomen and pelvis with contrast. Radiation optimization: All CT scans at this facility use at least one of these dose optimization techniques: automated exposure control; mA and/or kV adjustment per patient size (includes targeted exams where dose is matched to clinical indication); or iterative reconstruction. Contrast material: OMNI 350; Contrast volume: 100 ml; Contrast route: INTRAVENOUS (IV); COMPARISON: CT abdomen pelvis w con* [id number] 06/04/2021 4:29 PM RADIATION DOSE METRICS: Total DLP (mGy-cm): 931.19 FINDINGS: Liver: Normal. No mass. Gallbladder and biliary ducts: Normal. No calcified stones. No ductal dilation. Pancreas: Normal. No ductal dilation. Spleen: Normal. No splenomegaly. Adrenal glands: Normal. No mass. Kidneys and ureters: 17 mm cyst in the lower pole of the left kidney has benign features. Follow-up is not necessary. Punctate calcification in the left lower quadrant seen best on series 4 image 70 may represent a tiny ureteral calculus versus immediately adjacent phlebolith. There is no hydronephrosis or hydroureter. Stomach and bowel: There are air-fluid levels in the distal colon suggesting mild nonspecific colitis versus other diarrheal illness. Appendix: A normal appendix is identified. Intraperitoneal space: Unremarkable. No free air. No significant fluid collection. Vasculature: See Kidneys and ureters finding. Lymph nodes: Unremarkable. No enlarged lymph nodes. Urinary bladder: Unremarkable as visualized. Reproductive: Unremarkable as visualized. Bones/joints: Unremarkable. No acute fracture. Soft tissues: Unremarkable. CT/CT abdomen pelvis w con* [id number] IMPRESSION: 1. There are air-fluid levels in the distal colon suggesting mild nonspecific colitis versus other diarrheal illness. 2. Punctate calcification in the left lower quadrant seen best on series 4 image 70 may represent a tiny ureteral calculus versus immediately adjacent phlebolith. There is no hydronephrosis or hydroureter. COMMENTS: Consistent with the [employer]'s Incidental Findings Committee white paper (J Am Honorio Radiol 2018): Any incidental renal lesion less than 1 cm or classified as too small to characterize, or any incidental cystic renal lesion characterized as simple-appearing, is likely benign. No follow-up imaging is recommended for these lesions per consensus recommendations based on imaging criteria.
--- NOTE | 2023-09-19 16:18 | W.ED.ABDPA2 ---
HPI - Abdominal Pain General: Chief Complaint: Abdominal Pain Stated Complaint: ese reynolds Time Seen by Provider: 09/19/23 15:44 History of Present Illness: 47-year-old female who presents emergency room with nausea and vomiting and abdominal pain. She complains of left upper quadrant and epigastric pain. She says it is very sharp. She has had some nausea and vomiting. Some diarrhea. She is being treated for a stomach ulcer she says. No chest pain. No fevers. No altered mental status. Review of Systems Narrative: Constitutional symptoms: Negative except as documented in HPI. Skin symptoms: Negative except as documented in HPI. Eye symptoms: Negative except as documented in HPI. ENMT symptoms: Negative except as documented in HPI. Respiratory symptoms: Negative except as documented in HPI. Cardiovascular symptoms: Negative except as documented in HPI. Gastrointestinal symptoms: Negative except as documented in HPI. Genitourinary symptoms: Negative except as documented in HPI. Musculoskeletal symptoms: Negative except as documented in HPI. Neurologic symptoms: Negative except as documented in HPI. Psychiatric symptoms: Negative except as documented in HPI. Endocrine symptoms: Negative except as documented in HPI. PFSH ED PFSH: Medical History Chronic idiopathic urticaria Surgical History History of esophagogastroduodenoscopy 2020 History of hysterectomy Status post colonoscopy (06/27/21) Family History Other CAD (coronary artery disease) Cancer Diabetes Hypertension Social History Smoking and tobacco/nicotine status: current some day tobacco/nicotine user Physical Exam Narrative: EXAM NARRATIVE: General: Alert, no acute distress. Skin: Warm, dry. Head: Normocephalic, atraumatic. Neck: Supple, trachea midline. Eye: Extraocular movements are intact. Ears, nose, mouth and throat: mucosa moist. Cardiovascular: Regular, Normal peripheral perfusion. Respiratory: Lungs are clear to auscultation, respirations are non-labored, breath sounds are equal, Symmetrical chest wall expansion. Gastrointestinal: Soft, moderate left-sided abdominal pain, Non distended Musculoskeletal: Normal ROM, no deformity. Neurological: Alert and oriented, No focal neurological deficit observed. Psychiatric: Cooperative, appropriate mood & affect. Course Vital Signs: Vital signs: Vital Signs Temperature 98.5 F 09/19/23 14:46 Pulse Rate 105 H 09/19/23 14:46 Respiratory Rate 16 09/19/23 17:01 Blood Pressure 152/115 09/19/23 14:46 Pulse Oximetry 99 09/19/23 17:01 MDM - Abdominal Pain Medical Decision Making Medical decision making: Differential diagnosis including but not limited to and based on the above HPI, review of systems and physical exam: Concern for pancreatitis, diverticulitis, ileus, small bowel obstruction, kidney stones. Orders placed to evaluate differential diagnosis based on the above differential, HPI and physical exam Lab Review: Laboratory results were reviewed and interpreted by myself the emergency room physician. Some mild leukocytosis with a white count of 16,000. Hemoglobin is 16. BUN and creatinine are [address] abdomen pelvis consistent with distal colon colitis. With her having a white count and we will place her on some antibiotics. This was reviewed and interpreted by myself the emergency room physician. I also reviewed the radiology report. I reviewed the patient's medical record. Reexamination: Assessment and plan: Colitis ?IV Dilaudid, p.o. Flagyl and p.o. Cipro in the emergency room. - Discharged home - Discussed findings and plan with patient. Answered any questions. - All laboratory values were reviewed and interpreted personally by myself, the ER physician - All imaging was reviewed and interpreted personally by myself, the ER physician. - Evaluation and treatment of this problem were appropriate in the emergency setting Lab Data 09/19/23 14:32 09/19/23 14:32 Labs/Radiology: Radiology Impressions Abdomen/Pelvis CT 09/19/23 16:04 IMPRESSION: 1. There are air-fluid levels in the distal colon suggesting mild nonspecific colitis versus other diarrheal illness. 2. Punctate calcification in the left lower quadrant seen best on series 4 image 70 may represent a tiny ureteral calculus versus immediately adjacent phlebolith. There is no hydronephrosis or hydroureter. COMMENTS: Consistent with the [employer]'s Incidental Findings Committee white paper (J Am Honorio Radiol 2018): Any incidental renal lesion less than 1 cm or classified as too small to characterize, or any incidental cystic renal lesion characterized as simple-appearing, is likely benign. No follow-up imaging is recommended for these lesions per consensus recommendations based on imaging criteria. Laboratory Results WBC 16.34 10^3/uL (3.29-11.43) H 09/19/23 14:32 RBC 4.85 10^6/uL (3.85-5.65) 09/19/23 14:32 Hgb 16.00 g/dL (11.27-16.99) 09/19/23 14:32 Hct 47.4 % (36-47) H 09/19/23 14:32 MCV 97.7 fl (85-98) 09/19/23 14:32 MCH 33.0 pg (27-33) 09/19/23 14:32 MCHC 33.8 g/dL (30-55) 09/19/23 14:32 RDW 12.8 % (12.1-15.1) 09/19/23 14:32 Plt Count 255 10^3/cmm (157-399) 09/19/23 14:32 MPV 11.4 fL (7.4-10.4) H 09/19/23 14:32 Neut % (Auto) 72.9 % 09/19/23 14:32 Lymph % (Auto) 20.5 % 09/19/23 14:32 Dunn % (Auto) 5.3 % 09/19/23 14:32 Eos % (Auto) 0.5 % 09/19/23 14:32 Baso % (Auto) 0.4 % 09/19/23 14:32 Neut # (Auto) 11.92 10^3/uL (1.8-7.7) H 09/19/23 14:32 Lymph # (Auto) 3.4 10^3/uL (0.8-4.8) 09/19/23 14:32 Dunn # (Auto) 0.9 10^3/uL (0.2-0.9) 09/19/23 14:32 Eos # (Auto) 0.1 10^3/uL (0.0-0.8) 09/19/23 14:32 Baso # (Auto) 0.1 10^3/uL (0.0-0.1) 09/19/23 14:32 Nucleated RBC % (auto) 0 % 09/19/23 14:32 Nucleated RBCs # 0.0 /100WBC 09/19/23 14:32 Sodium 137 mmol/L (136-145) 09/19/23 14:32 Potassium 4.1 mmol/L (3.5-5.1) 09/19/23 14:32 Chloride 103 mmol/L (98-107) 09/19/23 14:32 Carbon Dioxide 24 mmol/L (22-29) 09/19/23 14:32 Anion Gap 14.1 (5-19) 09/19/23 14:32 BUN 14 mg/dL (6-20) 09/19/23 14:32 Creatinine 0.7 mg/dL (0.5-0.9) 09/19/23 14:32 GFR Calculation 89.7 mL/min (90-130) L 09/19/23 14:32 Glucose 96 mg/dL (65-115) 09/19/23 14:32 Calculated Osmolality 284 mOsm/kg (285-295) L 09/19/23 14:32 Calcium 8.9 mg/dL (8.5-10.5) 09/19/23 14:32 Total Bilirubin 0.3 mg/dL (0.15-1.2) 09/19/23 14:32 AST 20 U/L (0-32) 09/19/23 14:32 ALT 16 U/L (0-33) 09/19/23 14:32 Alkaline Phosphatase 87 U/L (35-105) 09/19/23 14:32 Total Protein 7.0 g/dL (6.6-8.7) 09/19/23 14:32 Albumin 4.0 g/dL (3.5-5.2) 09/19/23 14:32 Globulin 3.0 g/dL (1.3-4.6) 09/19/23 14:32 Lipase 16 U/L (13-60) 09/19/23 14:32 HCG, Qual Negative (Negative) 09/19/23 14:32 All radiology interpretation(s) finalized by discharge Discharge Plan Discharge Patient Disposition: Home Clinical Impression: Colitis Condition: Stable Prescriptions: New hydrocodone-acetaminophen 5-325 mg tablet 1 tab PO Q6H PRN (Reason: pain) Qty: 20 0RF metronidazole 500 mg tablet 500 mg PO Q8H 10 Days Qty: 30 0RF ciprofloxacin HCl 500 mg tablet 500 mg PO BID 10 Days Qty: 20 0RF No Action (DME) CAM Boot See Rx Instructions .Route .MEDSUPPLY Qty: 1 0RF Rx Instructions: As directed fluticasone propionate [Flonase Allergy Relief] 50 mcg/actuation spray,suspension 1 spray intranasal DAILY Rx Instructions: administer into each nostril fexofenadine [Melodie Allergy] 180 mg tablet 180 mg PO DAILY irbesartan 150 mg tablet 150 mg PO DAILY montelukast 10 mg tablet 10 mg PO DAILY epinephrine 0.3 mg/0.3 mL auto-injector 0.3 mg IM Q4H PRN (Reason: Anaphylaxis) (DME) oxygen-air delivery systems Device See Rx Instructions .Route Rx Instructions: As directed Spiriva Respimat 1.25 mcg/actuation mist 2 puff inhalation DAILY Zyrtec 10 mg capsule 10 mg PO DAILY PRN (Reason: Allergy Symptoms) albuterol sulfate [ProAir HFA] 90 mcg/actuation HFA aerosol inhaler 1 inh inhalation QID Dupixent Pen 300 mg/2 mL pen injector 300 mg SUBCUT .every 2 weeks diclofenac sodium 75 mg tablet,delayed release (DR/EC) 75 mg PO Q12H PRN (Reason: pain) Qty: 20 0RF ondansetron HCl 8 mg tablet 8 mg PO Q8H PRN (Reason: Nausea) Flovent HFA 220 mcg/actuation HFA aerosol inhaler 2 inh INHALATION BID Discharge Orders: Discharge ED (Routine); Ordered 09/19/23 Ordered By: Antonietta Painter Referrals: Karl Stevens MD [Primary Care Provider] - Discharge Diet: Usual diet Discharge Activity: Increase activity as tolerated Patient Instructions: Colitis (ED), Opioid Safety, Pain Management Activity Restrictions/Additional Instructions: Thank you for choosing [facility] for your healthcare needs today. Please realize this is an emergency room and that we are providing you with a medical screening exam and this may not be complete and all inclusive of all the testing and or work up that you may need to determine your ailment or severity of your illness. You have been screened and evaluated and felt safe for discharge. Health conditions do change or evolve sometimes and as such it is important that you follow up with your Primary Doctor to be re checked, 3-5 days is a general good time frame for follow up. You are always welcome to return to the ED for re assessment if your symptoms are worsening or you have new concerns Coding Level of Care Code ED Vp Software Engineering for Charo Santos
[2023-09-19] MEDS: iohexol 350 mg/mL 500 mL Btl (per mL) IV (16:26)
[2023-09-19 17:01] VITALS: RESP 16; O2SAT 99
[2023-09-19] MEDS: ondansetron 2 mg/ML SDV 2 mL 4 MG IVP (17:01)
[2023-09-19] MEDS: HYDROmorphone 1 mg/mL INJ 1 mL IVP (17:01)
[2023-09-19] MEDS: sodium chloride 0.9% 1,000 ML 999 ML IV (17:01)
[2023-09-19] MEDS: metroNIDAZOLE 500 MG Tablet PO (17:53)
[2023-09-19] MEDS: ciprofloxacin 500 mg Tablet PO (17:53)
[2023-09-19 17:57] VITALS: BP 136/53; PULSE 80; O2SAT 99
== END 2023-09-19 18:00 | disposition home or self-care (01) ==
PROVIDERS: Emergency Medicine; Emergency Provider Emergency Medicine; PCP Family Medicine
DX: K52.9 Noninfective gastroenteritis and colitis, unspecified (principal); Z72.0 Tobacco use
CPT/HCPCS: 36415; 74177; 80053; 83690; 84703; 85025; 96374; 96375; 99285; J1170; J2405; J7030; Q9967

== ENCOUNTER 2023-10-14 06:00 | Outpatient (RCR) | payer BC, SELFPAY | END 2023-11-13 23:59 | disposition home or self-care (01) | LOC: SPT 06:00 | DX: Z98.890 Other specified postprocedural states (principal) | CPT/HCPCS: 97110; 97112 ==

== ENCOUNTER 2024-03-09 15:53 | Outpatient (CLI) | payer BC, SELFPAY ==
--- NOTE | 2024-03-09 15:58 | MM_ITS ---
WS: [id number] BILATERAL SCREENING DIGITAL TOMOSYNTHESIS MAMMOGRAM WITH CAD HISTORY: SCREENING COMPARISON: 02/25/2023, 02/23/2022 Bilateral CC and MLO views with tomosynthesis and synthetic mammography submitted. Computer aided det ection analyzed. Breast composition: The breasts are almost entirely fatty. No suspicious masses, microcalcifications or architectural distortion. Benign calcifications LEFT breast. MM/MM scr BI tomosynthesis [id number] IMPRESSION: BI-RADS: 2 - Benign. FOLLOW UP: 1 Year Follow-up
== END 2024-03-09 15:54 | disposition home or self-care (01) ==
LOC: RAD 15:55
PROVIDERS: PCP Family Medicine; Visit Provider Family Medicine
DX: Z12.31 Encounter for screening mammogram for malignant neoplasm of breast (principal); R92.313 Mammographic fatty tissue density, bilateral breasts; R92.1 Mammographic calcification found on diagnostic imaging of breast
CPT/HCPCS: 77063; 77067

== ENCOUNTER 2024-06-07 13:52 | Outpatient (CLI) | payer BC, SELFPAY ==
--- NOTE | 2024-06-07 13:58 | XR_ITS ---
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 FINDINGS: The L1-L4 bone mineral density measures 0.999 g/cm2. This corresponds to a T score score of -1.5 and Z score of -2.4. Left femoral neck bone mineral density measures 0.812 g/cm2. This corresponds to a T score of -1.6 and Z score of -2.0. Right femoral neck bone mineral density measures 0.880 g/cm2. This corresponds to a T score -1.0of and Z score of -1.4. Mean femoral neck bone mineral density measures 0.846 g/cm2. This corresponds to a T score of -1.3 and Z score of -1.7. XR/XR DEXA axial skeleton* [id number] IMPRESSION: Osteopenia lumbar spine. Osteopenia femoral necks. Patient's FRAX calculated 10 year probability for major osteoporotic fracture i s 13.2% and osteoporotic hip fracture is 3.1%.
== END 2024-06-07 13:53 | disposition home or self-care (01) ==
LOC: RAD 13:56
PROVIDERS: PCP Family Medicine; Visit Provider Family Medicine
DX: M85.89 Other specified disorders of bone density and structure, multiple sites (principal)
CPT/HCPCS: 77080